=== PATIENT | female | born 1975 | race Caucasian/White ===

== ENCOUNTER 2017-01-12 18:09 | Emergency (ER) | payer BC, OTHER ==
[2017-01-12 18:14] VITALS: BP 121/70; PULSE 104; TEMP 98.1; BMI 31.7
--- NOTE | 2017-01-12 18:25 | PDOC ---
History of Present Illness - General History Source: Patient Exam Limitations: No Limitations - History of Present Illness Initial Comments: 01/12/17 18:39 The patient is a 41 year old female with a significant past medical history of migraines and asthma, who presents to the ED with 4 days of left flank pain radiating to the left groin. Patient states [facility]. She did not take any medication for alleviation. She reports having kidney stones 2 years. PSH: Laparoscopic surgery for gastric banding last year. LMP: Currently on menstrual cycle now. <Joe Boyle - Last Filed: 01/13/17 00:06> <Anne-Marie Kirby - Last Filed: 01/13/17 18:40> - General Chief Complaint: Pain Stated Complaint: PAIN Time Seen by Provider: 01/12/17 18:22 Past History <Joe Boyle - Last Filed: 01/13/17 00:06> - Past Medical History Anemia: No Asthma: Yes Cancer: No Cardiac Disorders: No CVA: No COPD: No CHF: No Dementia: No Diabetes: No GI Disorders: No Disorders: No HTN: No Hypercholesterolemia: No Liver Disease: No Suicide Attempt (Hx): No Seizures: No Thyroid Disease: No Other medical history: MIGRAINES - Surgical History Abdominal Surgery: No Appendectomy: No Cardiac Surgery: No Cholecystectomy: No Gastric Stapling: No (LAP BAND) Lung Surgery: No Neurologic Surgery: No Orthopedic Surgery: Yes (RIGHT PINKY FINGER SX) - Immunization History Immunization Up to Date: Yes - Psycho/Social/Smoking Cessation Hx Anxiety: No Suicidal Ideation: No Smoking Status: No Smoking History: Never smoked Have you smoked in the past 12 months: No Number of Cigarettes Smoked Daily: 0 Hx Alcohol Use: No Drug/Substance Use Hx: No Substance Use Type: None Hx Substance Use Treatment: No <Anne-Marie Kirby - Last Filed: 01/13/17 18:40> - Past Medical History Allergies/Adverse Reactions: Allergies Allergy/AdvReac Type Severity Reaction Status Date / Time latex Allergy Verified 01/12/17 18:13 Home Medications: Ambulatory Orders NK [No Known Home Medication] 01/13/17 Review of Systems - Review of Systems Able to Perform ROS?: Yes Comments:: 01/12/17 18:39 CONSTITUTIONAL: Absent: fever, chills, diaphoresis, generalized weakness, malaise, loss of appetite HEENT: Absent: rhinorrhea, nasal congestion, throat pain, throat swelling, difficulty swallowing, mouth swelling, ear pain, eye pain, visual Changes CARDIOVASCULAR: Absent: chest pain, syncope, palpitations, irregular heart rate, lightheadedness , peripheral edema RESPIRATORY: Absent: cough, shortness of breath, dyspnea with exertion, orthopnea, wheezing, stridor, hemoptysis GASTROINTESTINAL: Present: left flank pain radiating to the left groin. nausea, and vomiting. Absent: abdominal distension, diarrhea, constipation, melena, hematochezia GENITOURINARY: Absent: dysuria, frequency, urgency, hesitancy, hematuria, flank pain, genital pain MUSCULOSKELETAL: Absent: myalgia, arthralgia, joint swelling SKIN: Absent: rash, itching, pallor HEMATOLOGIC/IMMUNOLOGIC: Absent: easy bleeding, easy bruising, lymphadenopathy, frequent infections ENDOCRINE: Absent: unexplained weight gain, unexplained weight loss, heat intolerance, cold intolerance NEUROLOGIC: Absent: headache, focal weakness or paresthesias, dizziness, unsteady gait, seizure, mental status changes, bladder or bowel incontinence PSYCHIATRIC: Absent: anxiety, depression, suicidal or homicidal ideation, hallucinations. <Joe Boyle - Last Filed: 01/13/17 00:06> *Physical Exam - Vital Signs Last Vital Signs Temp Pulse Resp BP Pulse Ox 98.1 F 104 H 20 121/70 98 01/12/17 18:10 01/12/17 18:10 01/12/17 18:10 01/12/17 18:10 01/12/17 18:10 - Physical Exam Comments: 01/12/17 18:40 GENERAL: Well developed, well nourished. Awake and alert. No acute distress. HEENT: Normocephalic, atraumatic. PERRLA, EOMI. No conjunctival pallor. Sclera are non- icteric. Moist mucous membranes. Oropharynx is clear. NECK: Supple. Full ROM. No JVD. Carotid pulses 2+ and symmetric, without bruits. No thyromegaly. No lymphadenopathy. CARDIOVASCULAR: Regular rate and rhythm. No murmurs, rubs, or gallops. Distal pulses are 2+ and symmetric. PULMONARY: No evidence of respiratory distress. Lungs clear to auscultation bilaterally. No wheezing, rales or rhonchi. ABDOMINAL: Soft. Non-tender. Non-distended. No rebound or guarding. No organomegaly. Normoactive bowel sounds. MUSCULOSKELETAL CVA Tenderness. Normal range of motion at all joints. No bony deformities or tenderness. EXTREMITIES: No cyanosis. No clubbing. No edema. No calf tenderness. SKIN: Warm and dry. Normal capillary refill. No rashes. No jaundice. NEUROLOGICAL: Alert, awake, appropriate. Cranial nerves 2-12 intact. No deficits to light touch and temperature in face, upper extremities and lower extremities. No motor deficits in the in face, upper extremities and lower extremities. Normoreflexic in the upper and lower extremities. Normal speech. Toes are down-going bilaterally. Gait is normal without ataxia. PSYCHIATRIC: Cooperative. Good eye contact. Appropriate mood and affect. <Joe Boyle - Last Filed: 01/13/17 00:06> - Vital Signs Last Vital Signs Temp Pulse Resp BP Pulse Ox 98.1 F 104 H 20 121/70 98 01/12/17 18:10 01/12/17 18:10 01/12/17 18:10 01/12/17 18:10 01/12/17 18:10 <Anne-Marie Kirby - Last Filed: 01/13/17 18:40> ED Treatment Course - LABORATORY CBC & Chemistry Diagram: 01/12/17 19:30 01/12/17 19:30 - RADIOLOGY Radiology Studies Ordered: 01/13/17 00:07 EXAM: ABDOMEN & PELVIS CT WITH CONTR HISTORY:Left lower quadrant pain and vomiting COMPARISON: None. TECHNIQUE: Ct of the abdomen and pelvis was performed with serial axial images extending from the dome of the liver to the perineum following the intravenous andministration of vascular contrast. FINDINGS: Liver: Normal Spleen: Normal Pancreas: Normal Gallbladder: Normal Stomach: There is a lap band device surrounding the proximal stomach. Small bowel: Normal Large bowel: Normal Appendix is not visualized Adrenals: Normal Kidneys: Bilateral calyceal renal stones which appear nonobstructive. The largest is on the right and measures 6 mm. Vascular aorta and mesenteric vessels appear normal Lymphatic: no enlarged nodes Skeletal: Normal Peritoneal: There is no free air or fluid. Catheter from the lap band traverses the superior peritoneum Pelvis: Uterus is enlarged with multiple fibroids. Largest fibroid measures 5.6 cm. Bladder appears normal. Rectum appears normal. Inferior thorax: Normal IMPRESSION: Lap band in standard position surrounding the proximal stomach. Uterine masses suggesting fibroids THIS DOCUMENT HAS BEEN ELECTRONICALLY SIGNED Emmett Roberts MD 01/12/2017 23: 25 EST <Joe Boyle - Last Filed: 01/13/17 00:06> - LABORATORY CBC & Chemistry Diagram: 01/12/17 19:30 01/12/17 19:30 <Anne-Marie Kirby - Last Filed: 01/13/17 18:40> Medical Decision Making - Medical Decision Making 01/13/17 17:16 41 yo female p/w flank pain for several days and today the pain intensified with her vomiting 3 times -denied fever,chills,dysuria -no rebound or guarding on abd exam PSH lap band placed by Dr Collins ct scan abd/pel did not show hydronephrosis,urinary obstruction -lap band is in appropriate position -labs reviewed and unremarkable -pt does have problem w constipation and will take her miralax plan- follow up w PCP and bariatric surgeon 01/13/17 18:37 <Anne-Marie Kirby - Last Filed: 01/13/17 18:40> *DC/Admit/Observation/Transfer - Attestations Scribe Attestion: 01/12/17 18:41 Documentation prepared by Joe Boyle, acting as medical appliance maker for Anne-Marie Kirby MD. <Joe Boyle - Last Filed: 01/13/17 00:06> <Anne-Marie Kirby - Last Filed: 01/13/17 18:40> Diagnosis at time of Disposition: Flank pain Vomiting Qualifiers: Vomiting type: unspecified Vomiting Intractability: non-intractable Nausea presence: with nausea Qualified Code(s): R11.2 - Nausea with vomiting, unspecified - Discharge Dispostion Disposition: HOME Condition at time of disposition: Stable - Referrals Referrals: Benjamin Gardner MD [Primary Care Provider] - - Patient Instructions Printed Discharge Instructions: DI for Flank Pain, DI for Vomiting -- Adult Additional Instructions: please followup with your regular physician this week
[2017-01-12] MEDS ORDERED: ONDANSETRON 4 MG/2 ML VIAL IVPUSH ONE (18:35)
[2017-01-12] MEDS ORDERED: SODIUM CHLORIDE 1,000 ML IV STA (18:35)
[2017-01-12] MEDS ORDERED: ONDANSETRON 4 MG/2 ML VIAL ONE (19:10)
[2017-01-12 19:37] LABS: BASOPHIL 0.6 % (0-2.0); EOSINOPHIL 3.2 % (0-4.5); MCH 29.7 pg (25.7-33.7); MCHC 33.2 g/dl (32.0-36.0); MEAN CELL VOLUME 89.4 fl (80-96); MEAN PLT VOLUME 6.7 fl (7.5-11.1); NEUTROPHILS 55.6 % (42.8-82.8); PLATELET COUNT 331 K/MM3 (134-434); RDW 14.5 % (11.6-15.6); WHITE BLOOD COUNT 7.8 K/mm3 (4.0-10.0)
[2017-01-12 19:43] LABS: URINE APPEARANCE CLEAR; URINE BILIRUBIN NEGATIVE (NEGATIVE); URINE BLOOD NEGATIVE (NEGATIVE); URINE COLOR LTYELLOW; URINE GLUCOSE (UA) NEGATIVE (NEGATIVE); URINE KETONE NEGATIVE (NEGATIVE); URINE NITRITE NEGATIVE (NEGATIVE); URINE PROTEIN NEGATIVE (NEGATIVE); URINE UROBILINOGEN NEGATIVE E.U./dl (0.2-1.0)
[2017-01-12 19:46] LABS: URINE LEUK ESTERASE TRACE (NEGATIVE)
[2017-01-12 19:56] LABS: URINE MUCUS RARE; URINE RBC 3 /hpf (0-3); URINE WBC 3 /hpf (3-5)
[2017-01-12] MEDS ORDERED: KETOROLAC TROMETHAMINE 30 MG/1 ML VIAL ONE (20:00)
[2017-01-12] MEDS ORDERED: KETOROLAC TROMETHAMINE 30 MG/1 ML VIAL IVPUSH ONE (20:03)
[2017-01-12 20:07] LABS: ALBUMIN 3.3 g/dl (3.4-5.0); ANION GAP 10 (8-16); BILIRUBIN,TOTAL 0.2 mg/dL (0.2-1.0); CALCIUM 8.8 mg/dL (8.5-10.1); CO2 25 mmol/L (21-32); CREATININE 0.6 mg/dL (0.55-1.02); GLUCOSE,RANDOM 74 mg/dL (74-106); SGOT/AST 17 U/L (15-37); SGPT/ALT 25 U/L (12-78); TOT PROT 6.7 g/dl (6.4-8.2)
[2017-01-12 20:08] LABS: ALK PHOS 46 U/L (45-117)
== END 2017-01-13 00:31 | disposition home or self-care (01) ==
LOC: JER 18:09
PROC: 3E0333Z Introduction of Anti-inflammatory into Peripheral Vein, Percutaneous Approach (ICD-10-PCS; principal; 2017-01-12)
PROC: 3E033GC Introduction of Other Therapeutic Substance into Peripheral Vein, Percutaneous Approach (ICD-10-PCS; 2017-01-12)
DX: R10.32 Left lower quadrant pain (principal); D25.9 Leiomyoma of uterus, unspecified; Z87.442 Personal history of urinary calculi; Z98.84 Bariatric surgery status
CPT/HCPCS: 36415; 74177-TC; 80053; 81003; 81015; 84703; 85025; 99282-25

== ENCOUNTER 2017-12-04 05:08 | Inpatient (IN) | payer OTHER ==
[2017-12-01 17:35] VITALS: BMI 38.1
[2017-12-04] MEDS ORDERED: SUCCINYLCHOLINE CHLORIDE 200 MG/10 ML VIAL ONE (07:13)
[2017-12-04] MEDS ORDERED: PROPOFOL 20 ML ONE ×4 (07:13)
[2017-12-04] MEDS ORDERED: ePHEDrine SULFATE 50 MG/1 ML AMPULE ONE (07:13)
[2017-12-04] MEDS ORDERED: fentaNYL CITRATE 250 MCG/5 ML VIAL ONE (07:13)
[2017-12-04] MEDS ORDERED: MIDAZOLAM HCL 2 MG/2 ML SINGLE DOSE VIAL ONE ×2 (07:14→07:41)
[2017-12-04] MEDS ORDERED: ROCURONIUM BROMIDE 50 MG/5 ML VIAL ONE (07:14)
[2017-12-04] MEDS ORDERED: BUPIVACAINE HCL/PF 0.5% (5MG/ML) 10 ML VIAL ONE (07:36)
[2017-12-04] MEDS ORDERED: DEXAMETHASONE SOD PHOSPHATE/PF 10 MG/ML SDV ONE (07:36)
[2017-12-04] MEDS ORDERED: CEFAZOLIN 2 GM in DEXTROSE 5%-WATER - 100 ML IVPB ONE (08:20)
[2017-12-04] MEDS ORDERED: IBUPROFEN 800 MG/8 ML IJ IVPB PRN (08:20)
[2017-12-04] MEDS ORDERED: ceFAZolin SODIUM 1 GM VIAL IVPB ONE (08:20)
--- NOTE | 2017-12-04 08:24 | HP ---
History & Physical Update - History History: No Change - Physical Physical: No Change - Assessment Assessment: No Change - Plan Plan: No Change (No updated from on 12/01/17)
[2017-12-04] MEDS ORDERED: DESFLURANE GAS 240 ML BOTTLE IH ONE (08:36)
[2017-12-04] MEDS ORDERED: NEOSTIGMINE METHYLSULFATE 0.5 MG/ML - 10 ML MDV ONE (09:27)
[2017-12-04] MEDS ORDERED: CEFAZOLIN 1 GM/D5W 1 GM/50 ML BAG IVPB SCH (10:00)
[2017-12-04] MEDS ORDERED: ONDANSETRON 4 MG/2 ML VIAL IVPUSH PRN (10:13)
[2017-12-04] MEDS ORDERED: LACTATED RINGERS SOLUTION 1,000 ML IV SCH (10:15)
[2017-12-04] MEDS ORDERED: HYDROmorphone *PCA* 6MG/30ML DISP.SYRIN PCA ONE (10:31)
[2017-12-04] MEDS: HYDROmorphone *PCA* 6MG/30ML DISP.SYRIN PCA SCH ×2 (11:12→19:33)
--- NOTE | 2017-12-04 11:56 | OP ---
Operative Note - Note: Operative Date: 12/04/17 Pre-Operative Diagnosis: Leiomyomatous uterus Operation: abdominal myomectomy Post-Operative Diagnosis: Same as Pre-op Surgeon: Sarah Zamudio Petroleum Sampler: Giovanni Sommers Anesthesia: General Operative Report Dictated: Yes
[2017-12-04] MEDS: CEFAZOLIN 1 GM/D5W 1 GM/50 ML BAG IVPB SCH (16:17)
[2017-12-04 18:24] LABS: BASO % 0.2 % (0-2.0); EOS % 0.1 % (0-4.5); HEMATOCRIT 34.2 % (32.4-45.2); HEMOGLOBIN 11.4 GM/dL (10.7-15.3); LYMPH % 4.6 % (8-40); MCH 28.8 pg (25.7-33.7); MCHC 33.5 g/dl (32.0-36.0); MEAN CELL VOLUME 86.1 fl (80-96); MEAN PLT VOLUME 6.7 fl (7.5-11.1); MONO % 1.6 % (3.8-10.2); NEUT % 93.5 % (42.8-82.8); PLATELET COUNT 320 K/MM3 (134-434); RBC 3.97 M/mm3 (3.60-5.2); RDW 15.2 % (11.6-15.6); WHITE BLOOD COUNT 11.5 K/mm3 (4.0-10.0)
[2017-12-04] MEDS ORDERED: PCA PUMP KEY 1 EACH EACH ONE ×2 (19:30→19:39)
[2017-12-04] MEDS: LACTATED RINGERS SOLUTION 1,000 ML/1,000 ML INFUS.BAG IV SCH (21:21)
[2017-12-05] MEDS: CEFAZOLIN 1 GM/D5W 1 GM/50 ML BAG IVPB SCH (01:10)
[2017-12-05] MEDS: LACTATED RINGERS SOLUTION 1,000 ML/1,000 ML INFUS.BAG IV SCH (06:37)
[2017-12-05 08:29] LABS: BASO % 0.4 % (0-2.0); EOS % 0.1 % (0-4.5); HEMATOCRIT 29.9 % (32.4-45.2); HEMOGLOBIN 10.2 GM/dL (10.7-15.3); LYMPH % 17.3 % (8-40); MCH 29.6 pg (25.7-33.7); MCHC 34.2 g/dl (32.0-36.0); MEAN CELL VOLUME 86.5 fl (80-96); MEAN PLT VOLUME 6.6 fl (7.5-11.1); MONO % 6.3 % (3.8-10.2); NEUT % 75.9 % (42.8-82.8); PLATELET COUNT 299 K/MM3 (134-434); RBC 3.46 M/mm3 (3.60-5.2); RDW 15.3 % (11.6-15.6)
[2017-12-05] MEDS ORDERED: PCA PUMP KEY 1 EACH EACH ONE (08:49)
[2017-12-05 08:54] LABS: ANION GAP 7 (8-16); BLOOD UREA NITROGEN 10 mg/dL (7-18); CALCIUM 7.9 mg/dL (8.5-10.1); CHLORIDE 109 mmol/L (98-107); CO2 23 mmol/L (21-32); GLUCOSE,RANDOM 98 mg/dL (74-106); SODIUM 139 mmol/L (136-145)
[2017-12-05 08:55] LABS: CREATININE 0.5 mg/dL (0.55-1.02)
[2017-12-05] MEDS: oxyCODONE HCL 5 MG TABLET PO PRN ×4 (10:20→23:32)
[2017-12-05] MEDS: ACETAMINOPHEN 325 MG TABLET (FP) PO PRN ×4 (10:21→23:32)
[2017-12-05] MEDS: ENOXAPARIN NA (PORCINE) 40 MG/0.4 ML DISP.SYRIN SQ SCH (10:22)
--- NOTE | 2017-12-05 10:49 | PN ---
Progress Note (short form) - Note Progress Note: POD #1 - s/p abdominal myomectomy under general anesthesia with bilateral TAP blocks and COMMUNITY INTEGRATION SPECIALIST for postop pain management. Pt. doing well, sitting up comfortably in chair. VSS. No complaints. Good pain control. COMMUNITY INTEGRATION SPECIALIST discontinued earlier this morning. No apparent anesthetic complications noted. Continue current care.
--- NOTE | 2017-12-05 13:57 | PATH ---
Surgical Pathology Report Patient Name: ARMANDO VILLAGRAN [facility]. Rec. #: [id number] /Age/Gender: 1975 (Age: 42) / F Account: [id number] Location: [facility] OBS/NETWORK MANAGER Taken: 12/04/2017 Received: 12/04/2017 Reported: 12/05/2017 Physicians: Sarah Zamudio M.D. Specimen(s) Received FIBROIDS Clinical History Leiomyomatous uterus Final Diagnosis UTERUS, FIBROIDS, ABDOMINAL MYOMECTOMY: LEIOMYOMATA. Electronically Signed Laurence Hsu M.D. Gross Description Received in formalin labeled "fibroids," is a 133 g aggregate of 8 nodules ranging from 0.9-6.6 cm in greatest dimension, consistent with fibroids. Sectioning of the smaller 7 nodules reveals mortensen, firm to rubbery parenchyma with whorled architecture. Sectioning of the largest nodule reveals mortensen-pink parenchyma with foci of degeneration. Acoustic Sensor Operator sections are submitted in 7 cassettes as follows: 1-4-smaller nodules; 5-7-largest nodule. /12/04/2017 saudi/12/04/2017
--- NOTE | 2017-12-05 17:06 | PN ---
Progress Note (SOAP) - Current Medications Current Medications: Active Medications Acetaminophen (Tylenol -) 650 mg PO Q4H PRN PRN Reason: PAIN LEVEL 1 - 3 Last Admin: 12/05/17 15:35 Dose: 650 mg Enoxaparin Sodium (Lovenox -) 40 mg SQ DAILY MARS Last Admin: 12/05/17 10:22 Dose: 40 mg Ibuprofen (Caldolor Injection -) 800 mg IVPB Q8H PRN PRN Reason: FEVER Last Admin: 12/04/17 23:40 Dose: 800 mg Ondansetron HCl (Zofran Injection) 4 mg IVPUSH Q6H PRN PRN Reason: NAUSEA AND/OR VOMITING Last Admin: 12/04/17 17:17 Dose: 4 mg Oxycodone HCl (Roxicodone -) 5 mg PO Q4H PRN PRN Reason: PAIN LEVEL 4 - 6 Last Admin: 12/05/17 15:35 Dose: 5 mg Oxycodone HCl (Roxicodone -) 10 mg PO Q4H PRN PRN Reason: PAIN LEVEL 6-10 - Objective Vital Signs: Vital Signs Temperature 98.1 F 12/05/17 13:00 Pulse Rate 106 H 12/05/17 13:00 Respiratory Rate 20 12/05/17 13:00 Blood Pressure 116/65 12/05/17 13:00 O2 Sat by Pulse Oximetry (%) 98 12/04/17 13:20 Constitutional: Yes: Well Nourished, No Distress Wound/Incision: Yes: Clean/Dry, Well Approximated, Steri Strips, Open to air Neurological: Yes: WNL, Alert, Oriented Labs Lab Results: CBC, BMP 12/05/17 07:45 12/05/17 07:45 Assessment/Plan SP myomectomy POD 1 Plan reg dinner oob dc iv
[2017-12-06] MEDS ORDERED: METOCLOPRAMIDE HCL 10 MG TABLET (FP) PO PRN (06:13)
[2017-12-06] MEDS: ACETAMINOPHEN 325 MG TABLET (FP) PO PRN (07:34)
[2017-12-06] MEDS ORDERED: IBUPROFEN 600 MG TABLET (FP) PO PRN (07:56)
[2017-12-06] MEDS: oxyCODONE HCL 5 MG TABLET PO PRN (08:36)
[2017-12-06 09:55] VITALS: BP 102/52; PULSE 99; TEMP 99.3
[2017-12-06] MEDS: ENOXAPARIN NA (PORCINE) 40 MG/0.4 ML DISP.SYRIN SQ SCH (10:35)
== END 2017-12-06 13:00 | disposition home or self-care (01) | DRG 743 ==
LOC: JSAMEDAYSX 05:08 → EDSTATUS 08:00 → J3W 13:16
PROVIDERS: ADMIT Obstetrics & Gynecology; ATTEND Obstetrics & Gynecology
PROC: 0UB90ZZ Excision of Uterus, Open Approach (ICD-10-PCS; principal; 2017-12-04 08:00)
DX: D25.9 Leiomyoma of uterus, unspecified (principal)
CPT/HCPCS: 36415; 80048; 85025; 88305-TC; 94760; J1170

== ENCOUNTER 2018-03-26 09:52 | Day surgery (SDC) | payer OTHER ==
[2018-03-26 10:09] VITALS: BMI 34.4
[2018-03-26] MEDS ORDERED: SODIUM CHLORIDE 0.9% 1000 ML INFUS.BAG IV ONE (10:25)
[2018-03-26] MEDS ORDERED: ONDANSETRON 4 MG/2 ML VIAL IVPUSH ONE (10:25)
--- NOTE | 2018-03-26 10:25 | PDOC ---
History of Present Illness - General History Source: Patient Exam Limitations: No Limitations - History of Present Illness Initial Comments: 03/26/18 10:48 The patient is a 42-year-old female, with a past medical history of asthma, diabetes, hypotension, and migraines, who presents to the ED with worsening nausea, vomiting, and abdominal pain. The patient had a gastric band procedure performed in December [address] Collins and for the past year the patient has been experiencing intermittent nausea, vomiting, and abdominal pain. She presents today because her symptoms have progressively worsened over the past week. She reports experiencing 6-7 episodes of vomiting yesterday and 2 episodes this morning; emesis was blood tinged. She has not been able to tolerate any fluids or liquids. The patient is also complaining of diffuse epigastric pain, back pain, and fatigue. Patient reports having normal bowel movements. The patient denies any fever, chills, or diarrhea. Denies any shortness of breath or chest pain. Denies any dysuria, frequency, urgency, or hesitancy. Denies any rashes. Allergies: Latex Surgical History: Lap band surgery. Social History: None reported. Surgeon: Dr. Collins <Mary Miles - Last Filed: 03/26/18 11:26> <Sina Zhang - Last Filed: 03/26/18 14:31> - General Chief Complaint: Nausea Stated Complaint: NAUSEA/VOMITING Time Seen by Provider: 03/26/18 10:17 Past History <Mary Miles - Last Filed: 03/26/18 11:26> - Past Medical History Anemia: No Asthma: Yes Cancer: No Cardiac Disorders: No CVA: No COPD: No CHF: No Dementia: No Diabetes: No GI Disorders: No Disorders: No HTN: No Hypercholesterolemia: No Liver Disease: No Seizures: No Thyroid Disease: No - Surgical History Abdominal Surgery: Yes (lap band) Appendectomy: No Cardiac Surgery: No Cholecystectomy: No Gastric Stapling: No (LAP BAND) Lung Surgery: No Neurologic Surgery: No Orthopedic Surgery: Yes (RIGHT PINKY FINGER SX) - Immunization History Immunization Up to Date: Yes - Suicide/Smoking/Psychosocial Hx Smoking Status: No Smoking History: Never smoked Have you smoked in the past 12 months: No Number of Cigarettes Smoked Daily: 0 Hx Alcohol Use: No Drug/Substance Use Hx: No Substance Use Type: None Hx Substance Use Treatment: No <Sina Zhang - Last Filed: 03/26/18 14:31> - Past Medical History Allergies/Adverse Reactions: Allergies Allergy/AdvReac Type Severity Reaction Status Date / Time latex Allergy Mild Rash Verified 03/26/18 10:03 Home Medications: Ambulatory Orders Ibuprofen [Motrin -] 600 mg PO QID #28 tablet 12/04/17 Famotidine [Pepcid -] 20 mg PO BID #60 tablet 03/26/18 Oxycodone HCl/Acetaminophen [Percocet 5-325 mg Tablet] 1 tab PO Q6H PRN #20 tablet MDD 4 03/26/18 Review of Systems - Review of Systems Able to Perform ROS?: Yes Comments:: 03/26/18 10:54 A complete review of 10 out of 10 review of systems is taken and is negative apart from what is previously mentioned below and in the HPI. <Mary Miles - Last Filed: 03/26/18 11:26> *Physical Exam - Vital Signs Last Vital Signs Temp Pulse Resp BP Pulse Ox 98.1 F 92 H 16 103/61 99 03/26/18 09:55 03/26/18 09:55 03/26/18 09:55 03/26/18 09:55 03/26/18 09:55 - Physical Exam Comments: 03/26/18 10:54 Vitals: Triage Vital signs reviewed General Appearance: no acute distress, well nourished well developed, Head: Atraumatic, normocephalic Eyes: Pupils equal reactive round, extraocular movement intact Neck: Supple;No Nuchal rigidity Chest Wall: Nontender Cardiac: Regular rate and rhythm, no murmurs, no rubs, no gallops, Lungs: Clear to auscultation bilateral, good air movement bilaterally, Abdomen: (+)Diffuse epigastric tenderness to palpation. Soft, nondistended, normal bowel sounds Rectal: Exam deferred Extremities: Full range of motion to all extremities, no cyanosis, clubbing, or edema Skin: Warm and dry, no rashes or lesions, no petechiae Neuro: AOX3; Cranial Nerves 2-12 grossly intact, Strength intact to all extremities, Sensation intact to all extremities Psych: normal mood, normal affect. <Mary Miles - Last Filed: 03/26/18 11:26> - Vital Signs Last Vital Signs Temp Pulse Resp BP Pulse Ox 98.1 F 92 H 16 103/61 99 03/26/18 09:55 03/26/18 09:55 03/26/18 09:55 03/26/18 09:55 03/26/18 09:55 <Sina Zhang - Last Filed: 03/26/18 14:31> ED Treatment Course - LABORATORY CBC & Chemistry Diagram: 03/26/18 10:50 03/26/18 10:50 <Mary Miles - Last Filed: 03/26/18 11:26> - LABORATORY CBC & Chemistry Diagram: 03/26/18 10:50 03/26/18 10:50 <Sina Zhang - Last Filed: 03/26/18 14:31> Medical Decision Making - Medical Decision Making 03/26/18 10:35 Dr. Collins was paged and notified via phone service. 03/26/18 10:58 Plan: -Fluids -Antiemetics -Pepcid -Labs -Will discuss case with Dr. Collins (Surgeon) <Mary Miles - Last Filed: 03/26/18 11:26> - Medical Decision Making Case discussed with surgery recommends removal of LAP-BAND will preop patient for OR patient to go [facility] for lap band removal today. Patient informed <Sina Zhang - Last Filed: 03/26/18 14:31> *DC/Admit/Observation/Transfer - Attestations Scribe Attestion: 03/26/18 10:58 Documentation prepared by Mary Miles, acting as medical unit secretary for Sina Zhang MD. <Mary Miles - Last Filed: 03/26/18 11:26> <Sina Zhang - Last Filed: 03/26/18 14:31> Diagnosis at time of Disposition: Surgical abdomen - Discharge Dispostion Condition at time of disposition: Good
[2018-03-26] MEDS ORDERED: FAMOTIDINE 20 MG/50 ML IVPB 20 MG/50 ML MG IVPB ONE ×2 (10:26→10:32)
[2018-03-26] MEDS ORDERED: ONDANSETRON 4 MG/2 ML VIAL ONE ×2 (10:32→17:31)
[2018-03-26 10:57] LABS: HEMATOCRIT 36.4 % (32.4-45.2); LYMPH % 28.4 % (8-40); MCH 27.5 pg (25.7-33.7); MCHC 32.9 g/dl (32.0-36.0); MEAN CELL VOLUME 83.4 fl (80-96); MEAN PLT VOLUME 6.6 fl (7.5-11.1); NEUT % 61.6 % (42.8-82.8); PLATELET COUNT 392 K/MM3 (134-434); RBC 4.36 M/mm3 (3.60-5.2); RDW 15.3 % (11.6-15.6)
[2018-03-26 11:08] LABS: HCG,QUALITATIVE URINE Negative
[2018-03-26 11:12] LABS: URINE APPEARANCE CLEAR; URINE BILIRUBIN NEGATIVE (<2.0 mg/dL); URINE COLOR LTYELLOW; URINE GLUCOSE (UA) NEGATIVE (NEGATIVE); URINE KETONE NEGATIVE (NEGATIVE); URINE NITRITE NEGATIVE (NEGATIVE); URINE PROTEIN NEGATIVE (NEGATIVE); URINE UROBILINOGEN NEGATIVE mg/dL (0.2-1.0)
[2018-03-26 11:13] LABS: URINE LEUK ESTERASE 1+ (NEGATIVE)
[2018-03-26 11:15] LABS: EPI CELLS FEW /HPF (FEW); URINE MUCUS RARE
[2018-03-26 11:31] LABS: ALBUMIN 3.7 g/dl (3.4-5.0); ANION GAP 7 (8-16); BILIRUBIN,TOTAL 0.3 mg/dL (0.2-1.0); BLOOD UREA NITROGEN 8 mg/dL (7-18); CALCIUM 8.6 mg/dL (8.5-10.1); CHLORIDE 109 mmol/L (98-107); CO2 26 mmol/L (21-32); CREATININE 0.6 mg/dL (0.55-1.02); GLUCOSE,RANDOM 84 mg/dL (74-106); LIPASE 83 U/L (73-393); POTASSIUM 4.3 mmol/L (3.5-5.1); SGOT/AST 18 U/L (15-37); SGPT/ALT 25 U/L (12-78); SODIUM 142 mmol/L (136-145); TOT PROT 7.3 g/dl (6.4-8.2)
[2018-03-26 11:32] LABS: ALK PHOS 50 U/L (45-117)
[2018-03-26 12:02] LABS: INR 1.06 (0.82-1.09)
[2018-03-26 12:05] LABS: ACTIVATED PTT 28.2 SECONDS (25.2-36.5)
[2018-03-26] MEDS ORDERED: MIDAZOLAM HCL 2 MG/2 ML SINGLE DOSE VIAL ONE (12:35)
[2018-03-26] MEDS ORDERED: DEXAMETHASONE SOD PHOSPHATE 4 MG/1 ML VIAL ONE ×2 (13:01→14:02)
[2018-03-26] MEDS ORDERED: LIDOCAINE HCL/PF 2% SDV 5ML VIAL ONE (13:01)
[2018-03-26] MEDS ORDERED: ceFAZolin SODIUM 1 GM VIAL ONE (13:01)
--- NOTE | 2018-03-26 13:01 | HP ---
DATE OF ADMISSION: 03/26/2018 CHIEF COMPLAINT: 1. Vomiting. 2. Gastroesophageal reflux disease. 3. Mechanical complication of implantable device secondary to gastric band. HISTORY OF PRESENT ILLNESS: This is a 42-year-old woman who had a gastric band placed approximately 2 years ago and over the last few months had significant increase in vomiting and GE reflux. She presents today to the emergency department complaining of uncontrollable vomiting and inability to hold down food or water. PAST MEDICAL HISTORY: Noncontributory. PAST SURGICAL HISTORY: 1. Placement of a Lap-Band. 2. Breast reduction. 3. Abdominal myomectomy. ALLERGIES: The patient has no allergies. MEDICATIONS: Takes no medications. REVIEW OF SYMPTOMS: Neurologic: Within normal limits. Gastrointestinal: Positive for vomiting. Cardiovascular: Within normal limits. Musculoskeletal: Within normal limits. Genitourinary: Within normal limits. PHYSICAL EXAMINATION: General: A 42-year-old woman awake, alert, moderately obese in no acute distress. HEENT: No masses palpated. Lungs: Clear bilaterally. Heart: Regular sinus rhythm. Abdomen: Well-healed incision. Soft, nontender on palpation. Extremities: Within normal limits. IMPRESSION: 1. Malfunctioning mechanical device secondary to gastric band. 2. Vomiting. 3. Gastroesophageal reflux disease. PLAN: Bring to the OR for removal of gastric band plus subcutaneous port component. Carmen [id number]
[2018-03-26] MEDS ORDERED: ROCURONIUM BROMIDE 50 MG/5 ML VIAL ONE (13:02)
[2018-03-26] MEDS ORDERED: PROPOFOL 20 ML ONE (13:02)
[2018-03-26] MEDS ORDERED: fentaNYL CITRATE 250 MCG/5 ML VIAL ONE (13:02)
[2018-03-26] MEDS ORDERED: ceFAZolin SODIUM 1 GM VIAL IVPB ONE (13:08)
[2018-03-26] MEDS ORDERED: BUPIVACAINE HCL/PF 0.5% (5MG/ML) 10 ML VIAL ONE (13:36)
[2018-03-26] MEDS ORDERED: BUPIVACAINE HCL/PF 0.5% (5MG/ML) 10 ML VIAL IJ ONE (14:06)
[2018-03-26] MEDS ORDERED: NEOSTIGMINE METHYLSULFATE 0.5 MG/ML - 10 ML MDV ONE (14:07)
[2018-03-26] MEDS ORDERED: GLYCOPYRROLATE 0.2 MG/1 ML VIAL ONE (14:07)
[2018-03-26] MEDS ORDERED: PROMETHAZINE HCL 50 MG/1 ML AMP IM PRN (14:13)
[2018-03-26] MEDS ORDERED: oxyCODONE HCL 5 MG TABLET PO PRN (14:13)
[2018-03-26] MEDS ORDERED: ONDANSETRON 4 MG/2 ML VIAL IVPUSH PRN (14:13)
[2018-03-26] MEDS ORDERED: SODIUM CHLORIDE 1,000 ML IV SCH (14:15)
--- NOTE | 2018-03-26 14:25 | OP ---
Operative Note - Note: Operative Date: 03/26/18 Pre-Operative Diagnosis: Vomiting. GE Reflux Disease. Mechanical Complication of Implantable Device secondary to Gastric Band Operation: Removal of Gastric Band plus subcutaneous port component. Laparoscopic Lysis of Adhesions. Excision of fibrous capsule around stomach. Diagnostic Laparoscopy Findings: Band with extensive scar tissue attached to it plus thick capsule around stomach Post-Operative Diagnosis: Same as Pre-op (Abdominal adhesions;fibrous capsule around stomach) Surgeon: Ramez Collins Hvac Technician: Jeffrey Hagan Anesthesia: General Specimens Removed: Gastric Band plus sub-Q port Estimated Blood Loss (mls): 30 Operative Report Dictated: Yes
--- NOTE | 2018-03-26 15:00 | OP ---
DATE OF OPERATION: 03/26/2018 PREOPERATIVE DIAGNOSES: 1. Vomiting. 2. Gastroesophageal reflux disease. 3. Mechanical complication from implantable device secondary to gastric band. POSTOPERATIVE DIAGNOSES: 1. Vomiting. 2. Gastroesophageal reflux disease. 3. Mechanical complication from implantable device secondary to gastric band. 4. Abdominal adhesions. 5. Fibrous capsule around the stomach. PROCEDURE PERFORMED: 1. Removal of gastric band plus subcutaneous port component. 2. Laparoscopic lysis of adhesions. 3. Excision of fibrous capsule around the stomach. 4. Diagnostic laparoscopy. OPERATING SURGEON: Ramez Collins MD PROCESS DESIGN ENGINEER: Jeffrey Hagan MD ANESTHESIA: General. EXPECTED BLOOD LOSS: 30 mL OPERATIVE PROCEDURE: The patient was brought into the operating room, placed on the OR table in the supine position. All precautions were taken initially including padding for the back and the feet, and Venodyne boots were placed on both lower extremities. At that point, the abdomen was prepped and draped in the usual manner. A Veress needle was placed in the left upper quadrant, and a pneumoperitoneum was established. Under direct vision with a VersaPort, a number 5 trocar was placed into the abdominal cavity, and through that trocar, a number 5 laparoscopic camera was placed. Under direct vision, a number 15 bladeless trocar was placed in the right upper quadrant along with a number 5 bladeless trocar below the right costal margin. This was followed by a number 5 bladeless trocar below the left costal margin, all under direct vision. A Tiana liver retractor was then placed in the epigastrium to retract the left lobe of the liver. The patient was then placed in a 20-degree reverse Trendelenburg position by Anesthesia. There was scar tissue, adhesions to the liver, and these were lysed between the omentum and the liver very easily. Once this was done, attention was directed to the band tubing. There was omental scar tissue over this, and this was lysed with electrocautery until the band was noted on the stomach. As the physician's assistant surgeon retracted the band tubing toward the patient's left side, the operating surgeon was able to dissect the scar tissue off the band on the lesser curvature. This was done until the band was in full view on the lesser curvature and was easily rotated and movable. At this point, the operating surgeon retracted the band tubing toward the patient's right side as the physician's assistant surgeon retracted the stomach inferiorly on the greater curve. Here, the final scar tissue that was over the band on the greater curve was dissected free, and now, the band was in full view. The band was then opened. The tubing was cut at the takeoff to the subcutaneous port, and then, the band was removed from around the stomach and sent off the field to Pathology as a specimen. Attention was now directed to the fibrous capsule around the stomach. With the operating and the physician's assistant surgeon retracting each side, the operating surgeon placed a scissor and gently peeled off the fibrous capsule on the anterior wall of the stomach until the total anterior wall was free of all capsule. At this juncture, Dr. Hagan, the physician's assistant surgeon, scrubbed out of the case and performed an upper endoscopy. The details are described in his operative note, but it essentially showed that the endoscope easily passed through the stomach. There was no obstruction, no scar tissue noted, and there were no signs of any leakage. At this point, the number 15 trocar site was removed, and an Endoclose device was used to close it to prevent internal hernia and to prevent bleeding. Under direct vision, all trocars were removed, and pneumoperitoneum was released. The right upper quadrant number 15 port site was extended laterally and dissection continued with electrocautery down to the port on the right anterior rectus muscle. The port and remaining tube were removed and sent off the field as a specimen to Pathology. All trocar sites now received 0.25% Marcaine, all closed with 4-0 Biosyn in a subcuticular fashion. The number 15 trocar site, where the port was, was first closed with 3-0 Vicryl in the subcutaneous tissue, followed by 4-0 Biosyn in subcuticular fashion. Dressings were applied. Patient awoke from anesthesia and transferred out of the operating room to the recovery room in stable condition. Carmen [id number]
[2018-03-26 15:07] LABS: HEMATOCRIT 36.6 % (32.4-45.2); HEMOGLOBIN 11.9 GM/dL (10.7-15.3); MCH 27.2 pg (25.7-33.7); MCHC 32.6 g/dl (32.0-36.0); MEAN CELL VOLUME 83.3 fl (80-96); MEAN PLT VOLUME 6.7 fl (7.5-11.1); PLATELET COUNT 371 K/MM3 (134-434); RBC 4.39 M/mm3 (3.60-5.2); RDW 15.7 % (11.6-15.6); WHITE BLOOD COUNT 12.9 K/mm3 (4.0-10.0)
[2018-03-26 15:52] LABS: ANION GAP 7 (8-16); BLOOD UREA NITROGEN 8 mg/dL (7-18); CALCIUM 8.1 mg/dL (8.5-10.1); CHLORIDE 111 mmol/L (98-107); CO2 24 mmol/L (21-32); CREATININE 0.7 mg/dL (0.55-1.02); GLUCOSE,RANDOM 92 mg/dL (74-106); POTASSIUM 4.2 mmol/L (3.5-5.1); SODIUM 142 mmol/L (136-145)
[2018-03-26] MEDS ORDERED: oxyCODONE HCL 5 MG TABLET ONE ×2 (15:56→17:49)
[2018-03-26 16:11] VITALS: TEMP 98.5
--- NOTE | 2018-03-26 16:18 | EKG ---
Test Reason : Blood Pressure : / mmHG Vent. Rate : 065 BPM Atrial Rate : 065 BPM P-R Int : 180 ms QRS Dur : 098 ms QT Int : 412 ms P-R-T Axes : 027 051 048 degrees QTc Int : 428 ms NORMAL SINUS RHYTHM NORMAL ECG WHEN COMPARED WITH ECG OF 26-DEC-2004 08:44, NO SIGNIFICANT CHANGE WAS FOUND Confirmed by TAYLER MEHTA MD ([id number]) on 03/26/2018 4:18:32 PM Referred By: Confirmed By:TAYLER MEHTA MD
[2018-03-26 19:05] VITALS: BP 109/69; PULSE 89
[2018-03-26] MEDS ORDERED: FAMOTIDINE 20 MG/50 ML IVPB 20 MG/50 ML MG IVPB SCH (22:00)
--- NOTE | 2018-04-07 16:31 | PATH ---
Surgical Pathology Report Patient Name: ARMANDO VILLAGRAN Med. Rec. #: [id number] /Age/Gender: 1975 (Age: 42) / F Account: [id number] Location: AMBULATORY SURG Taken: 03/26/2018 Received: 03/27/2018 Reported: 04/07/2018 Physicians: Ramez Collins M.D. PHYSICIAN EMERGENCY DEPT Specimen(s) Received GASTRIC BAND AND SUBCUTANEOUS PORT Clinical History Vomiting, GERD, slipped gastric band Final Diagnosis GASTRIC BAND AND SUBCUTANEOUS PORT, REMOVAL: GASTRIC BAND AND PORT, MACROSCOPIC DIAGNOSIS. Electronically Signed Laurence Hsu M.D. Gross Description Received fresh labeled "gastric band and subcutaneous port," is a 4 cm in diameter white gastric band with an attached 45 cm in length portion of white tubing. Also received within the same container is a 2.5 cm in diameter x 1.2 cm in depth white, circular device, consistent with a port. The port displays a 13 cm in length portion of tubing extending from one aspect. No soft tissue is present. No sections are submitted, gross only. /03/27/2018 saudi/03/27/2018
== END 2018-03-26 18:30 | disposition home or self-care (01) ==
LOC: JER 09:52 → JASUSAT 11:13
PROVIDERS: ATTEND Surgery
PROC: 0DP64CZ Removal of Extraluminal Device from Stomach, Percutaneous Endoscopic Approach (ICD-10-PCS; principal; 2018-03-26 16:00)
DX: T85.598A Other mechanical complication of other gastrointestinal prosthetic devices, implants and grafts, initial encounter (principal); K95.09 Other complications of gastric band procedure; R11.10 Vomiting, unspecified; K21.9 Gastro-esophageal reflux disease without esophagitis; E11.9 Type 2 diabetes mellitus without complications
CPT/HCPCS: 36415; 80048; 80053; 81003; 81015; 83690; 84703; 85025; 85027; 85610; 85730; 86850; 86900; 86901; 87086; 87186; 88300-TC; 93005; 93010; 94760; 99282-25; J7030

== ENCOUNTER 2019-07-20 16:18 | Emergency (ER) | payer BC, OTHER ==
--- NOTE | 2019-07-20 16:24 | PDOC ---
Rapid Medical Evaluation Time Seen by Provider: 07/20/19 16:19 Medical Evaluation: Allergies Allergy/AdvReac Type Severity Reaction Status Date / Time latex Allergy Mild Rash Verified 03/26/18 10:03 07/20/19 16:19 CC: "I have a bump to my stomach." PE: Firm palpable non-fluctuant mass present to right lower abdominal wall Orders: labs, CTAP Patient will proceed to ED for continued evaluation. Discharge Disposition - Diagnosis Hernia - Referrals - Patient Instructions - Post Discharge Activity
[2019-07-20 16:34] VITALS: PULSE 90; BMI 37.3
--- NOTE | 2019-07-20 16:57 | PDOC ---
History of Present Illness - General Chief Complaint: Pain, Acute Stated Complaint: ABD.PAIN/DIARRHEA Time Seen by Provider: 07/20/19 16:19 History Source: Patient - History of Present Illness Timing/Duration: reports: getting worse Abdominal Pain Onset Location: reports: RLQ Past History - Past Medical History Allergies/Adverse Reactions: Allergies Allergy/AdvReac Type Severity Reaction Status Date / Time latex Allergy Mild Rash Verified 03/26/18 10:03 Home Medications: Ambulatory Orders Ibuprofen [Motrin -] 600 mg PO QID #28 tablet 12/04/17 Famotidine [Pepcid -] 20 mg PO BID #60 tablet 03/26/18 Oxycodone HCl/Acetaminophen [Percocet 5-325 mg Tablet] 1 tab PO Q6H PRN #20 tablet MDD 4 03/26/18 Anemia: No Asthma: Yes Cancer: No Cardiac Disorders: No CVA: No COPD: No CHF: No Dementia: No Diabetes: No GI Disorders: No Disorders: No HTN: No Hypercholesterolemia: No Liver Disease: No Seizures: No Thyroid Disease: No - Surgical History Abdominal Surgery: Yes (lap band) Appendectomy: No Cardiac Surgery: No Cholecystectomy: No Gastric Stapling: No (LAP BAND) Lung Surgery: No Neurologic Surgery: No Orthopedic Surgery: Yes (RIGHT PINKY FINGER SX) - Immunization History Immunization Up to Date: Yes - Psycho Social/Smoking Cessation Hx Smoking Status: No Smoking History: Never smoked Have you smoked in the past 12 months: No Number of Cigarettes Smoked Daily: 0 Information on smoking cessation initiated: No Hx Alcohol Use: No Drug/Substance Use Hx: No Substance Use Type: None Hx Substance Use Treatment: No Review of Systems - Review of Systems Constitutional: No: Chills, Fever ABD/GI: Yes: Nausea, Abdominal cramping. No: Blood Streaked Bowels, Constipated , Diarrhea, Rectal Bleeding : No: Burning, Dysuria, Discharge, Frequency, Flank Pain, Hematuria *Physical Exam - Vital Signs Last Vital Signs Temp Pulse Resp BP Pulse Ox 98.4 F 90 91 H 99/70 97 07/20/19 16:23 07/20/19 16:23 07/20/19 16:23 07/20/19 16:23 07/20/19 16:23 - Physical Exam General Appearance: Yes: Appropriately Dressed, Mild Distress HEENT: positive: Normal Voice Neck: positive: Supple Respiratory/Chest: negative: Respiratory Distress Gastrointestinal/Abdominal: positive: Normal Bowel Sounds, Soft, Hernia (Hernia noted upon standing and sig ttp, reduced in supine position). negative: Guarding, Rebound Musculoskeletal: negative: CVA Tenderness Integumentary: positive: Dry, Warm Neurologic: positive: Fully Oriented, Alert, Normal Mood/Affect ED Treatment Course - LABORATORY CBC & Chemistry Diagram: 07/20/19 16:42 07/20/19 16:42 Medical Decision Making - Medical Decision Making 07/20/19 16:51 43-year-old female, history of migraine, asthma, vertigo, s/p surgeries including reversal of LAP-BAND and myomectomy, here with RLQ pain. States she noted "a small lump" to RLQ 1 yr ago that has been gradually enlarging. + nausea , no vomiting, constipation, n,v or dysuria see exam R/o incarcerated hernia Reducible, tender ventral hernia noted to R lower abd -pain control -zofran -IVF -CT w/ IV/PO contrast -Dispo pending 07/20/19 19:03 Pt signed out to ROYAL Kirby pending CT Discharge - Discharge Information Clinical Impression/Diagnosis: Hernia Condition: Stable - Follow up/Referral Referrals: Benjamin Gardner MD [Primary Care Provider] - - Patient Discharge Instructions - Post Discharge Activity
[2019-07-20] MEDS ORDERED: ONDANSETRON 4 MG/2 ML VIAL IVPUSH ONE (17:01)
[2019-07-20] MEDS ORDERED: SODIUM CHLORIDE 1,000 ML IV STA ×2 (17:01→19:57)
[2019-07-20] MEDS ORDERED: KETOROLAC TROMETHAMINE 30 MG/1 ML VIAL IVPUSH ONE (17:01)
[2019-07-20] MEDS ORDERED: ONDANSETRON 4 MG/2 ML VIAL ONE (17:06)
[2019-07-20] MEDS ORDERED: KETOROLAC TROMETHAMINE 30 MG/1 ML VIAL ONE (17:06)
[2019-07-20 17:15] LABS: BASO % 0.1 % (0-2.0); EOS % 3.4 % (0-4.5); HEMATOCRIT 38.3 % (32.4-45.2); HEMOGLOBIN 12.5 GM/dL (10.7-15.3); LYMPH % 29.1 % (8-40); MCH 27.5 pg (25.7-33.7); MCHC 32.7 g/dl (32.0-36.0); MEAN PLT VOLUME 7.1 fl (7.5-11.1); MONO % 6.2 % (3.8-10.2); NEUT % 61.2 % (42.8-82.8); PLATELET COUNT 403 K/MM3 (134-434); RBC 4.55 M/mm3 (3.60-5.2); RDW 16.1 % (11.6-15.6)
[2019-07-20 17:18] LABS: BLOOD UREA NITROGEN 14.8 mg/dL (7-18); CALCIUM 9.1 mg/dL (8.5-10.1); CREATININE 0.7 mg/dL (0.55-1.3); POTASSIUM 4.1 mmol/L (3.5-5.1)
[2019-07-20 17:20] LABS: PH,URINE 5.5 (5.0-8.0); URINE APPEARANCE CLEAR; URINE BILIRUBIN NEGATIVE (NEGATIVE); URINE COLOR YELLOW; URINE GLUCOSE (UA) NEGATIVE (NEGATIVE); URINE KETONE NEGATIVE (NEGATIVE); URINE LEUK ESTERASE NEGATIVE (NEGATIVE); URINE NITRITE NEGATIVE (NEGATIVE); URINE PROTEIN NEGATIVE (NEGATIVE); URINE UROBILINOGEN 0.2 mg/dL (0.2-1.0)
--- NOTE | 2019-07-20 17:57 | PDOC ---
*Physical Exam - Vital Signs Last Vital Signs Temp Pulse Resp BP Pulse Ox 98.4 F 90 91 H 99/70 97 07/20/19 16:23 07/20/19 16:23 07/20/19 16:23 07/20/19 16:23 07/20/19 16:23 ED Treatment Course - LABORATORY CBC & Chemistry Diagram: 07/20/19 16:42 07/20/19 16:42 - ADDITIONAL ORDERS Additional order review: Laboratory Results 07/20/19 07/20/19 07/20/19 16:42 16:42 16:42 Sodium Potassium Chloride Carbon Dioxide Anion Gap BUN Creatinine Est GFR (CKD-EPI)AfAm Est GFR (CKD-EPI)NonAf Random Glucose Calcium Urine Color Yellow Urine Appearance Clear Urine pH 5.5 Ur Specific [place] 1.022 Urine Protein Negative Urine Glucose (UA) Negative Urine Ketones Negative Urine Blood Negative Urine Nitrite Negative Urine Bilirubin Negative Urine Urobilinogen 0.2 Ur Leukocyte Esterase Negative Urine HCG, Qual Negative Blood Type A POSITIVE Antibody Screen Negative 07/20/19 16:42 Sodium 138 Potassium 4.1 Chloride 108 H Carbon Dioxide 23 Anion Gap 8 BUN 14.8 Creatinine 0.7 Est GFR (CKD-EPI)AfAm 124.73 Est GFR (CKD-EPI)NonAf 107.62 Random Glucose 87 Calcium 9.1 Urine Color Urine Appearance Urine pH Ur Specific [place] Urine Protein Urine Glucose (UA) Urine Ketones Urine Blood Urine Nitrite Urine Bilirubin Urine Urobilinogen Ur Leukocyte Esterase Urine HCG, Qual Blood Type Antibody Screen 07/20/19 16:42 RBC 4.55 MCV 84.0 MCHC 32.7 RDW 16.1 H MPV 7.1 L Neutrophils % 61.2 Lymphocytes % 29.1 Monocytes % 6.2 Eosinophils % 3.4 Basophils % 0.1 Medical Decision Making - Medical Decision Making 07/20/19 17:57 Ms Paige is a 43 yo F who presents to the ER with a complaint of RLQ pain She has a h/o migraine, asthma, vertigo, s/p Lap band, reversal of LAP-BAND and myomectomy She possibly had a ventral wall hernia which has progressively enlarged She presents with + nausea, no vomiting, constipation, n,v or dysuria Agree with plan per [address] DD: incarcerated hernia, SBO, Gastroenteritis Laboratory Tests 07/20/19 07/20/19 07/20/19 16:42 16:42 16:42 WBC 9.0 Hgb 12.5 Hct 38.3 Plt Count 403 BUN 14.8 Creatinine 0.7 Urine Blood Urine Nitrite Ur Leukocyte Esterase Urine HCG, Qual Negative 07/20/19 16:42 WBC Hgb Hct Plt Count BUN Creatinine Urine Blood Negative Urine Nitrite Negative Ur Leukocyte Esterase Negative Urine HCG, Qual 07/20/19 18:07 CT pending Signed out to overnight team Discharge - Discharge Information Problems reviewed: Yes Clinical Impression/Diagnosis: Hernia Abdominal pain Qualifiers: Abdominal location: unspecified location Qualified Code(s): R10.9 - Unspecified abdominal pain Condition: Stable Disposition: HOME - Follow up/Referral Referrals: Ramez Collins MD [Staff Physician] - Call tomorrow Benjamin Gardner MD [Primary Care Provider] - - Patient Discharge Instructions Patient Printed Discharge Instructions: Abdominal Hernia Additional Instructions: no heavy lifting. please follow up with a surgeon as soon as possible return to the ER if symptoms worsen - Post Discharge Activity Work/Back to School Note: Back to Work
[2019-07-20] MEDS ORDERED: METOCLOPRAMIDE HCL INJECTION 10 MG/2 ML VIAL IVPB ONE (19:57)
[2019-07-20] MEDS ORDERED: METOCLOPRAMIDE HCL INJECTION 10 MG/2 ML VIAL ONE (20:01)
--- NOTE | 2019-07-20 20:29 | PDOC ---
*Physical Exam - Vital Signs Last Vital Signs Temp Pulse Resp BP Pulse Ox 98.4 F 90 91 H 99/70 97 07/20/19 16:23 07/20/19 16:23 07/20/19 16:23 07/20/19 16:23 07/20/19 16:23 ED Treatment Course - LABORATORY CBC & Chemistry Diagram: 07/20/19 16:42 07/20/19 16:42 - ADDITIONAL ORDERS Additional order review: Laboratory Results 07/20/19 07/20/19 07/20/19 16:42 16:42 16:42 Sodium Potassium Chloride Carbon Dioxide Anion Gap BUN Creatinine Est GFR (CKD-EPI)AfAm Est GFR (CKD-EPI)NonAf Random Glucose Calcium Urine Color Yellow Urine Appearance Clear Urine pH 5.5 Ur Specific [place] 1.022 Urine Protein Negative Urine Glucose (UA) Negative Urine Ketones Negative Urine Blood Negative Urine Nitrite Negative Urine Bilirubin Negative Urine Urobilinogen 0.2 Ur Leukocyte Esterase Negative Urine HCG, Qual Negative Blood Type A POSITIVE Antibody Screen Negative 07/20/19 16:42 Sodium 138 Potassium 4.1 Chloride 108 H Carbon Dioxide 23 Anion Gap 8 BUN 14.8 Creatinine 0.7 Est GFR (CKD-EPI)AfAm 124.73 Est GFR (CKD-EPI)NonAf 107.62 Random Glucose 87 Calcium 9.1 Urine Color Urine Appearance Urine pH Ur Specific [place] Urine Protein Urine Glucose (UA) Urine Ketones Urine Blood Urine Nitrite Urine Bilirubin Urine Urobilinogen Ur Leukocyte Esterase Urine HCG, Qual Blood Type Antibody Screen 07/20/19 16:42 RBC 4.55 MCV 84.0 MCHC 32.7 RDW 16.1 H MPV 7.1 L Neutrophils % 61.2 Lymphocytes % 29.1 Monocytes % 6.2 Eosinophils % 3.4 Basophils % 0.1 - Medications Given in the ED: ED Medications Discontinued Medications Generic Name Dose Route Start Last Admin Trade Name Freq PRN Reason Stop Dose Admin Sodium Chloride 1,000 mls @ 1,000 mls/hr 07/20/19 17:01 07/20/19 17:30 Normal Saline - IV 07/20/19 18:00 1,000 mls/hr ASDIR STA Administration Ketorolac Tromethamine 30 mg 07/20/19 17:01 07/20/19 17:30 Toradol Injection - IVPUSH 07/20/19 17:02 30 mg ONCE ONE Administration Metoclopramide HCl 10 mg 07/20/19 19:57 07/20/19 20:09 Reglan Injection - IVPB 07/20/19 19:58 10 mg ONCE ONE Administration Ondansetron HCl 4 mg 07/20/19 17:01 07/20/19 17:50 Zofran Injection IVPUSH 07/20/19 17:02 4 mg ONCE ONE Administration Medical Decision Making - Medical Decision Making 07/20/19 20:24 Abdomen soft + right inguinal area reducible hernia CTAP reviewed with patient strict reviewed with patient. patient is feeling better. will d/ chome 07/20/19 20:28 Discharge - Discharge Information Problems reviewed: Yes Clinical Impression/Diagnosis: Hernia Abdominal pain Qualifiers: Abdominal location: unspecified location Qualified Code(s): R10.9 - Unspecified abdominal pain Condition: Stable - Follow up/Referral Referrals: Benjamin Gardner MD [Primary Care Provider] - Ramez Collins MD [Staff Physician] - Call tomorrow - Patient Discharge Instructions Patient Printed Discharge Instructions: Abdominal Hernia Additional Instructions: no heavy lifting. please follow up with a surgeon as soon as possible return to the ER if symptoms worsen - Post Discharge Activity Work/Back to School Note: Back to Work
[2019-07-20 20:43] VITALS: BP 101/70; TEMP 98.2
== END 2019-07-20 20:43 | disposition home or self-care (01) ==
LOC: JER 16:18
PROC: 3E0333Z Introduction of Anti-inflammatory into Peripheral Vein, Percutaneous Approach (ICD-10-PCS; principal; 2019-07-20)
PROC: 3E033GC Introduction of Other Therapeutic Substance into Peripheral Vein, Percutaneous Approach (ICD-10-PCS; 2019-07-20)
PROC: 3E033GC Introduction of Other Therapeutic Substance into Peripheral Vein, Percutaneous Approach (ICD-10-PCS; 2019-07-20)
DX: K40.90 Unilateral inguinal hernia, without obstruction or gangrene, not specified as recurrent (principal); Z86.69 Personal history of other diseases of the nervous system and sense organs; Z87.09 Personal history of other diseases of the respiratory system; Z98.84 Bariatric surgery status
CPT/HCPCS: 36415; 74177-TC; 80048; 81003; 84703; 85025; 86850; 86900; 86901; 99283-25; C1887; J7030

== ENCOUNTER 2020-06-12 07:35 | Day surgery (SDC) | payer BC ==
[2020-06-09 16:16] VITALS: BMI 42.3
[~2020-06-12 07:35] MED LIST: PROPOFOL 20 ML ONE
[2020-06-12 08:30] VITALS: TEMP 98.4
[2020-06-12 09:02] VITALS: BP 110/61; PULSE 80
--- NOTE | 2020-06-13 17:29 | PATH ---
Surgical Pathology Report Patient Name: ARMANDO VILLAGRAN [facility]. Rec. #: [id number] /Age/Gender: 1975 (Age: 44) / F Account: [id number] Location: [facility] AMBULATORY Taken: 06/12/2020 Received: 06/12/2020 Reported: 06/13/2020 Physicians: Shekhar Allen M.D. Specimen(s) Received A: SECOND PORTION DUODENUM B: GASTRIC ANTRUM C: POLYP GASTRIC BODY Clinical History Pre-bariatric checkup Postoperative diagnosis: Gastric polyps Final Diagnosis A. SECOND PORTION DUODENUM, BIOPSY: DUODENAL MUCOSA WITH NO SIGNIFICANT PATHOLOGIC CHANGE. NO HISTOLOGIC EVIDENCE OF INTRAEPITHELIAL LYMPHOCYTOSIS. B. GASTRIC ANTRUM, BIOPSY: GASTRIC MUCOSA WITH CHRONIC GASTRITIS. IMMUNOSTAIN FOR H. PYLORI IS NEGATIVE. NEGATIVE FOR INTESTINAL METAPLASIA. C. POLYPS, GASTRIC BODY, BIOPSY: FUNDIC GLAND POLYPS. IMMUNOSTAIN FOR H. PYLORI IS NEGATIVE. NEGATIVE FOR INTESTINAL METAPLASIA. Electronically Signed Aidtya Kent M.D. Gross Description A. Received in formalin, labeled "second portion duodenum" are 2 mortensen, irregular soft tissue measuring 0.3 cm and 0.4cm in greatest dimension. The specimen is submitted in toto in one cassette. B. Received in formalin, labeled "gastric antrum" are 2 mortensen, irregular soft tissue measuring 0.2 cm and 0.3cm in greatest dimension. The specimen is submitted in toto in one cassette. C. Received in formalin, labeled "polyps, gastric body" are 2 mortensen, irregular soft tissue measuring 0.2 and 0.3 cm. in greatest dimension. The specimen is submitted in toto in one cassette. RAFAELA/06/13/2020 jorge/06/13/2020
== END 2020-06-12 09:16 | disposition home or self-care (01) ==
LOC: FASU 07:35
PROVIDERS: ATTEND Internal Medicine Gastroenterology
PROC: 0DB68ZX Excision of Stomach, Via Natural or Artificial Opening Endoscopic, Diagnostic (ICD-10-PCS; 2020-06-12)
PROC: 0DB68ZX Excision of Stomach, Via Natural or Artificial Opening Endoscopic, Diagnostic (ICD-10-PCS; 2020-06-12)
PROC: 0DB98ZX Excision of Duodenum, Via Natural or Artificial Opening Endoscopic, Diagnostic (ICD-10-PCS; principal; 2020-06-12 08:06)
DX: Z01.818 Encounter for other preprocedural examination (principal); K31.7 Polyp of stomach and duodenum; K29.50 Unspecified chronic gastritis without bleeding
CPT/HCPCS: 81025; 82962; 88305-TC; 88342-TC

== ENCOUNTER 2021-07-25 12:19 | Emergency (ER) | payer OTHER, BC ==
[2021-07-25 13:03] VITALS: BP 104/50; PULSE 86; TEMP 98; BMI 30.9
[2021-07-25] MEDS ORDERED: KETOROLAC TROMETHAMINE 30 MG/1 ML VIAL IM ONE (13:22)
[2021-07-25] MEDS ORDERED: KETOROLAC TROMETHAMINE 30 MG/1 ML VIAL ONE (13:25)
== END 2021-07-25 13:56 | disposition home or self-care (01) ==
LOC: JERFT 12:19
PROC: 3E0233Z Introduction of Anti-inflammatory into Muscle, Percutaneous Approach (ICD-10-PCS; principal; 2021-07-25)
DX: M25.552 Pain in left hip (principal); V89.2XXA Person injured in unspecified motor-vehicle accident, traffic, initial encounter; Y92.9 Unspecified place or not applicable
CPT/HCPCS: 73030-TC-LT-FY; 73502-TC-LT-FY; 73630-TC-RT-FY; 99284-25

== ENCOUNTER 2022-04-22 05:46 | Inpatient (IN) | payer OTHER ==
[2022-04-22] MEDS ORDERED: GABAPENTIN 300 MG CAPSULE PO ONE (06:00)
[2022-04-22] MEDS ORDERED: TRANEXAMIC ACID 1000 MG/10 ML VIAL IVPUSH ONE (06:00)
[2022-04-22] MEDS ORDERED: ACETAMINOPHEN 1000 MG/100 ML BAG IVPB ONE (06:00)
[2022-04-22] MEDS ORDERED: PHENAZOPYRIDINE HCL 100 MG TABLET (FP) PO ONE (06:19)
[2022-04-22] MEDS ORDERED: CEFAZOLIN 2 GM in DEXTROSE 5%-WATER - 100 ML IVPB ONE (06:30)
[2022-04-22 06:48] VITALS: BMI 32.9
[2022-04-22] MEDS ORDERED: ceFAZolin SODIUM 1 GM VIAL ONE ×3 (06:58→23:08)
[2022-04-22] MEDS ORDERED: SUCCINYLCHOLINE CHLORIDE 200 MG/10 ML SYRINGE ONE (07:29)
[2022-04-22] MEDS ORDERED: PROPOFOL 20 ML ONE ×3 (07:29→09:14)
[2022-04-22] MEDS ORDERED: MIDAZOLAM HCL 2 MG/2 ML SINGLE DOSE VIAL ONE ×2 (07:30)
[2022-04-22] MEDS ORDERED: BUPIVACAINE HCL/PF 0.25% (2.5MG/ML) 10 ML VIAL ONE (07:31)
[2022-04-22] MEDS ORDERED: ceFAZolin SODIUM 1 GM VIAL IVPB ONE (07:56)
[2022-04-22] MEDS ORDERED: ROCURONIUM BROMIDE 50 MG/5 ML SYRINGE ONE (07:58)
[2022-04-22] MEDS ORDERED: HYDROmorphone HCl 2 MG/ML VIAL ONE (09:07)
[2022-04-22] MEDS ORDERED: NEOSTIGMINE METHYLSULFATE 0.5 MG/ML - 10 ML MDV ONE (09:19)
[2022-04-22] MEDS ORDERED: GLYCOPYRROLATE 0.2 MG/1 ML VIAL ONE (09:28)
[2022-04-22] MEDS: LACTATED RINGERS SOLUTION 1,000 ML/1,000 ML INFUS.BAG IV SCH ×2 (09:51→21:00)
[2022-04-22] MEDS ORDERED: ONDANSETRON 4 MG/2 ML VIAL IVPUSH PRN ×2 (09:54→10:18)
[2022-04-22] MEDS ORDERED: oxyCODONE HCL 5 MG TABLET PO PRN ×2 (10:18)
[2022-04-22] MEDS ORDERED: BISACODYL 5 MG TABLET.DR (FP) PO PRN (10:18)
[2022-04-22] MEDS ORDERED: DEXTROSE 5%-WATER - 50 ML IVPB ONE ×2 (15:01→23:08)
[2022-04-22] MEDS: CEFAZOLIN 1 GM in DEXTROSE 5%-WATER - 1 GM/50 ML IVPB IVPB SCH (15:10)
[2022-04-22] MEDS: ACETAMINOPHEN 1000 MG/100 ML BAG IVPB SCH ×2 (15:10→21:20)
[2022-04-22] MEDS: IBUPROFEN 800 MG/8 ML IJ IVPB SCH (17:34)
[2022-04-22 18:22] LABS: HEMATOCRIT 33.3 % (32.4-45.2); MCH 26.8 pg (25.7-33.7); MEAN CELL VOLUME 81.1 fl (80-96); MEAN PLT VOLUME 6.4 fl (7.5-11.1); PLATELET COUNT 365 10^3/uL (134-434); RBC 4.11 M/mm3 (3.60-5.2); RDW 15.9 % (11.6-15.6); WHITE BLOOD COUNT 12.6 K/mm3 (4.0-10.0)
[2022-04-22 18:37] LABS: CALCIUM 8.2 mg/dL (8.5-10.1)
[2022-04-22 18:41] LABS: CREATININE 0.6 mg/dL (0.55-1.3)
[2022-04-22] MEDS: SIMETHICONE 80 MG TAB.CHEW (FP) PO PRN (21:20)
[2022-04-23] MEDS: CEFAZOLIN 1 GM in DEXTROSE 5%-WATER - 1 GM/50 ML IVPB IVPB SCH (00:14)
[2022-04-23] MEDS: IBUPROFEN 800 MG/8 ML IJ IVPB SCH ×2 (02:25→09:37)
[2022-04-23] MEDS: SIMETHICONE 80 MG TAB.CHEW (FP) PO PRN (06:34)
[2022-04-23] MEDS: DOCUSATE SODIUM 100 MG CAPSULE (FP) PO PRN ×2 (06:34→09:46)
[2022-04-23] MEDS ORDERED: ACETAMINOPHEN 500 MG TABLET (FP) PO SCH (07:00)
[2022-04-23 08:30] LABS: BLOOD UREA NITROGEN 7.3 mg/dL (7-18)
[2022-04-23 08:32] LABS: HEMATOCRIT 30.4 % (32.4-45.2); HEMOGLOBIN 10.1 GM/dL (10.7-15.3); MCH 27.2 pg (25.7-33.7); MCHC 33.2 g/dl (32.0-36.0); MEAN CELL VOLUME 81.9 fl (80-96); MEAN PLT VOLUME 6.4 fl (7.5-11.1); PLATELET COUNT 352 10^3/uL (134-434); RBC 3.71 M/mm3 (3.60-5.2); RDW 16.1 % (11.6-15.6); WHITE BLOOD COUNT 10.2 K/mm3 (4.0-10.0)
[2022-04-23 08:33] LABS: CREATININE 0.5 mg/dL (0.55-1.3)
[2022-04-23 08:58] VITALS: BP 97/56; PULSE 86; TEMP 98.1
[2022-04-23] MEDS ORDERED: ENOXAPARIN NA (PORCINE) 40 MG/0.4 ML DISP.SYRIN SQ SCH (10:00)
[2022-04-23 10:22] VITALS: RESP 16
[2022-04-23] MEDS ORDERED: IBUPROFEN 600 MG TABLET (FP) PO SCH (18:00)
== END 2022-04-23 13:20 | disposition home or self-care (01) | DRG 519 ==
LOC: J2C 05:46 → J3W 12:14
PROVIDERS: ADMIT Obstetrics & Gynecology; ATTEND Obstetrics & Gynecology
PROC: 0UT70ZZ Resection of Bilateral Fallopian Tubes, Open Approach (ICD-10-PCS; 2022-04-22)
PROC: 0UT20ZZ Resection of Bilateral Ovaries, Open Approach (ICD-10-PCS; 2022-04-22)
PROC: 0UT90ZZ Resection of Uterus, Open Approach (ICD-10-PCS; principal; 2022-04-22 07:30)
DX: D25.0 Submucous leiomyoma of uterus (principal); N92.0 Excessive and frequent menstruation with regular cycle; N80.0 Endometriosis of uterus; N83.202 Unspecified ovarian cyst, left side; N83.201 Unspecified ovarian cyst, right side
CPT/HCPCS: 36415; 80048; 81025; 85027; 86850; 86900; 86901; 88302-TC; 88307-TC; 94010; 94760

== ENCOUNTER → 2023-04-07 | Emergency (ER) | payer OTHER ==
[2023-04-07 14:16] VITALS: BP 105/64; PULSE 94; RESP 18; TEMP 99.1; BMI 33.3
== END | disposition left against medical advice (07) ==
LOC: JERFT 14:04
DX: M54.50 Low back pain, unspecified (principal); W19.XXXA Unspecified fall, initial encounter
CPT/HCPCS: 99281-25

== ENCOUNTER 2023-06-17 09:34 | Emergency (ER) | payer OTHER ==
[2023-06-17 09:41] VITALS: BP 100/40; PULSE 92; RESP 20; TEMP 98.3; BMI 33.8
[2023-06-17] MEDS ORDERED: ACETAMINOPHEN 1000 MG/100 ML BAG IVPB ONE (11:22)
== END 2023-06-17 13:00 | disposition left against medical advice (07) ==
LOC: JER 09:34
DX: R10.84 Generalized abdominal pain (principal); R14.0 Abdominal distension (gaseous); L76.32 Postprocedural hematoma of skin and subcutaneous tissue following other procedure
CPT/HCPCS: 99281-25

== ENCOUNTER 2023-10-25 23:04 | Emergency (ER) | payer SELFPAY ==
[2023-10-25 23:11] VITALS: BP 107/65; PULSE 124; RESP 20; TEMP 101.4; BMI 31.8
[2023-10-25] MEDS ORDERED: ACETAMINOPHEN 500 MG TABLET (FP) PO ONE (23:11)
[2023-10-25] MEDS ORDERED: ACETAMINOPHEN 500 MG TABLET (FP) ONE (23:31)
== END 2023-10-26 00:20 | disposition home or self-care (01) ==
LOC: FER 23:04
DX: R50.9 Fever, unspecified (principal); R51.9 Headache, unspecified; R05.9 Cough, unspecified; J11.1 Influenza due to unidentified influenza virus with other respiratory manifestations; Z20.822 Contact with and (suspected) exposure to COVID-19
CPT/HCPCS: 0241U-QW; 71045-TC-FY; 99284-25